=== PATIENT | male | born 1975 | race Caucasian/White ===

== ENCOUNTER 2017-05-04 16:52 | Emergency (ER) | payer SELFPAY ==
[~2017-05-04] VITALS: Ht 195.6 cm; Wt 100.0 kg
[2017-05-04 16:53] VITALS: BP 160/98; PULSE 88; RESP 20; TEMP 98.3; O2SAT 99
== END 2017-05-04 19:58 | disposition left against medical advice (07) ==
LOC: NED 16:52
DX: K30 Functional dyspepsia (principal)
CPT/HCPCS: 99281